=== PATIENT | female | born 1990 | race Caucasian/White ===

== ENCOUNTER 2019-03-14 20:23 | Inpatient (IN) ==
--- NOTE | 2019-03-14 20:40 | Emergency Department Note ---
Disposition Clinical Impression: Suicidal ideation Disposition: Admitted As Inpatient Psych HPI - General Stated Complaint: SI Time Seen by Provider: 03/14/19 20:29 Nursing Notes Reviewed: Yes Vital Signs Reviewed: Yes - History of Present Illness HPI Narrative: 28-year-old female who presents the emergency department with complaints of suicidal ideation. The patient states she has been going through talks with her of a possible divorce and since that time she has started to have thoughts of killing herself. She has no definitive plan this point has made no prior attempts. She denies any homicidal ideation. She states she has a headache but otherwise denies any somatic complaints at this time. - Related Data Home Medications Medication Instructions Recorded Confirmed Atorvastatin [Lipitor] 40 mg PO HS 10/29/16 03/14/19 SUMAtriptan succinate [Imitrex] 25 mg PO PRN PRN 11/17/17 03/14/19 Metoclopramide [Reglan] 10 mg PO QAM 09/04/18 03/14/19 Pantoprazole Sodium [Protonix] 40 mg PO QAM 09/04/18 03/14/19 Acetaminophen/Butalbital/Caffe 1 each PO PRN PRN 03/14/19 03/14/19 [Fioricet] Methocarbamol [Robaxin] 500 mg PO PRN PRN 03/14/19 03/14/19 Montelukast [Singulair] 10 mg PO PRN PRN 03/14/19 03/14/19 Allergies Allergy/AdvReac Type Severity Reaction Status Date / Time levofloxacin [From Levaquin] Allergy Rash Verified 02/16/19 17:38 sulfamethoxazole Allergy Rash Verified 02/16/19 17:38 [From Bactrim] trimethoprim [From Bactrim] Allergy Rash Verified 02/16/19 17:38 Review of Systems: ROS per history of present illness, all other systems reviewed and negative or normal. All systems ED: reviewed and negative except as stated. Review of Systems: As Per HPI Past Medical History - Past Medical History Medical history: Reports: no medical history, GERD Surgical history: Reports: other (Dental) Psychiatric history: Reports: anxiety SITE LEAD history: Reports: no SITE LEAD history - Social History Smoking Status: Never smoker Smokeless Tobacco Status: No Alcohol use: Reports: none Drug use: Reports: none Physical Exam - General Limitations: no limitations General appearance: alert, in no apparent distress - Head Head exam: atraumatic, normocephalic - Eye Eye exam: Present: normal appearance, EOMI - ENT ENT exam: normal exam, normal oropharynx, mucous membranes moist - Chest Chest inspection: Present: normal inspection, symmetric chest wall rise - Respiratory Respiratory exam: Present: normal lung sounds bilaterally. Absent: respiratory distress - Cardiovascular Cardiovascular exam: Present: regular rate, normal rhythm, normal heart sounds - Abdominal Exam Abdominal exam: Present: soft, Non-Tender. Absent: distention, guarding, rebound - Extremities Exam Extremities exam: Present: normal inspection. Absent: pedal edema - Neurological Exam Neurological exam: Present: alert, oriented X3 - Psychiatric Psychiatric exam: Present: depressed, flat affect, suicidal ideation, other. Absent: homicidal ideation - Skin Skin exam: Present: warm, dry, intact Course Vital Signs Temperature 98.6 F 03/14/19 21:04 Pulse Rate 78 03/14/19 21:04 Respiratory Rate 16 03/14/19 21:04 Blood Pressure 131/93 03/14/19 21:04 O2 Sat by Pulse Oximetry 99 03/14/19 21:04 Temperature 98.6 F 03/14/19 21:04 Pulse Rate 78 03/14/19 21:04 Respiratory Rate 16 03/14/19 21:04 Blood Pressure 131/93 03/14/19 21:04 O2 Sat by Pulse Oximetry 99 03/14/19 21:04 Oxygen Delivery Oxygen Delivery Room Air Psych - MDM Narrative Medical decision making narrative: 28-year-old female who presents from [place] for [facility] evaluation due to suicidal ideation. The patient is cooperative and in no acute distress at this time. She was placed with 1:1 sitter and her belongings were removed from the treatment area. Her his available at bedside. She was cleared medically prior to arrival with unremarkable laboratory evaluation and urine positive for barbiturates, likely chemical sales representative of her prescription for Fioricet for headaches. [facility] came to evaluate the patient and deemed her a candidate for inpatient psychiatry care. She will be admitted to their service. All questions answered. Psychiatric Medical Clearance - Medical Clearance Checklist Medical History: No Social History Section defined Current Vitals: Last Vital Signs Temp 98.6 F 03/14/19 21:04 Pulse 78 03/14/19 21:04 Resp 16 03/14/19 21:04 BP 131/93 03/14/19 21:04 Pulse Ox 99 03/14/19 21:04 Statement of Medical Clearance: I have evaluated the patient, reviewed diagnostic information, and certify that the patient's medical condition is sufficiently stable that transfer to the psychiatric unit does not pose a significant risk of deterioration.
--- NOTE | 2019-03-14 20:42 | Emergency Department Note ---
Disposition Clinical Impression: Suicidal ideation Disposition: Still a Patient General Adult HPI - General Stated complaint: SI Time Seen by Provider: 03/14/19 20:29 Source: patient, EMS Mode of arrival: EMS Limitations: no limitations Nursing Notes Reviewed: Yes Vital Signs Reviewed: Yes - History of Present Illness HPI Narrative: ED ATTESTATION NOTE: I examined this patient and my medical decision-making was reviewed with the Resident Physician/FISH CUTTING MACHINE OPERATOR/PA/Student. I have personally performed a face to face evaluation on this patient & I agree with the documented findings, disposition and treatment plan as described except to the extent set forth below. Patient was seen with emergency medicine resident Dr. La Lyle please see copy of her note for details of this encounter Briefly: 28-year-old female transferred from [facility] after me dically evaluated for suicidal ideations. The physical examination was benign her screening labs were within normal limits aside for urine tox screen. It positive for Fioricet which the patient is prescribed. Patient states she suicidal because her wants it worse or. History of depression but no prior mental health admissions. She has been placed in a room here at [facility] and we had a [id number] conversation with the screening mental health nurse who will see her when he finishes his current evaluation. Patient stable, disposition pending - Related Data Home Medications Medication Instructions Recorded Confirmed Atorvastatin [Lipitor] 40 mg PO HS 10/29/16 03/14/19 SUMAtriptan succinate [Imitrex] 25 mg PO PRN PRN 11/17/17 03/14/19 Metoclopramide [Reglan] 10 mg PO QAM 09/04/18 03/14/19 Pantoprazole Sodium [Protonix] 40 mg PO QAM 09/04/18 03/14/19 Acetaminophen/Butalbital/Caffe 1 each PO PRN PRN 03/14/19 03/14/19 [Fioricet] Methocarbamol [Robaxin] 500 mg PO PRN PRN 03/14/19 03/14/19 Montelukast [Singulair] 10 mg PO PRN PRN 03/14/19 03/14/19 Allergies Allergy/AdvReac Type Severity Reaction Status Date / Time levofloxacin [From Levaquin] Allergy Rash Verified 02/16/19 17:38 sulfamethoxazole Allergy Rash Verified 02/16/19 17:38 [From Bactrim] trimethoprim [From Bactrim] Allergy Rash Verified 02/16/19 17:38 Past Medical History - Past Medical History Medical history: Reports: no medical history, GERD Surgical history: Reports: other (Dental) Psychiatric history: Reports: anxiety ILLUMINATOR history: Reports: no ILLUMINATOR history - Social History Smoking Status: Never smoker Smokeless Tobacco Status: No Alcohol use: Reports: none Drug use: Reports: none Physical Exam - General Limitations: no limitations General appearance: alert, in no apparent distress
[2019-03-14] MEDS ORDERED: *HR* LORazepam 1 MG TABLET PO PRN (21:54)
[2019-03-14] MEDS ORDERED: MOM Conc 10 ML UD.LIQ PO PRN (21:54)
[2019-03-14] MEDS ORDERED: Mag Hydrox/Al Hydrox/Simeth 30 ML UDC PO PRN (21:54)
[2019-03-14] MEDS ORDERED: traZODone 50 MG TABLET PO PRN (21:54)
[2019-03-14] MEDS ORDERED: Haloperidol Lactate 5 MG/ML VIAL IM PRN (21:54)
[2019-03-14] MEDS ORDERED: *HR* LORazepam 2 MG/ML VIAL IM PRN (21:54)
[2019-03-14] MEDS ORDERED: hydrOXYzine pamoate 25 MG CAPSULE PO PRN (21:54)
[2019-03-14] MEDS ORDERED: Acetaminophen 325 MG TABLET PO PRN (21:54)
[2019-03-15] MEDS ORDERED: Methocarbamol 500 MG TABLET PO PRN (10:22)
[2019-03-15] MEDS ORDERED: SUMAtriptan succinate 25 MG TABLET PO PRN (10:24)
[2019-03-15] MEDS ORDERED: Acetaminophen/Butalbital/CaffeineTABLET PO PRN (10:26)
--- NOTE | 2019-03-15 10:45 | Psychiatry History & Physical ---
Date of Encounter: 03/15/19 Time of Encounter: 09:30 History of Present Illness Patient Stated Chief Complaint: "I was dealing with stress in my relationship" Medicare Admission Attestation: For traditional Medicare patients the provided hospital inpatient services are r easonable and necessary and in the case of services not specified as inpatient- only under 42 CFR 419.22 (n), that they are appropriately provided as inpatient services in accordance 42 CFR 412.3. For Critical Access Hospital the patient may reasonably be expected to be discharged or transferred to a hospital within 96 hours after admission to the Critical Access Hospital. Admitted From: Emergency Dept Plans for Post Hospital Care: Home History of Present Illness: Ms. Salas is a 28 year old female who was admitted from the emergency department for suicidal ideation without a plan. She states that she got very overwhelmed and threatened to kill herself, so her called the squad. Patient reports that she and her have been having marital problems for the past two months, along with the stress of her losing his job. She states that she wants to go to marital counseling, but he is not interested. She worries a lot about their marriage, her children, and where she will go if the marriage ends because the house is in her 's name. Patient has never attempted suicide in the past, but does tend to experience suicidal thoughts when she has depressive episodes. Patient admits to depressive symptoms including trouble concentration, poor sleep, poor appetite, low energy, and hopelessness. She rates her current depression level as 7/10 on a 0-10 scale with 0 being none and 10 being the worst of her life. She rates her anxiety as 7/10 on the same scale. Denies auditory and visual hallucinations. Her is planning on visiting the patient an[place] and she is looking forward to that. Patient has a history of GERD, migraine, seasonal allergies, and high cholesterol. Also appears to experiencing some IBS-diarrhea symptoms. States that her neurologist thinks that she may have fibromyalgia. Past Med Surg Social Fam HX - Past Medical History Medical history: fibromyalgia (neurologist is considering this diagnosis), GERD, hyperlipidemia, migraine - Past Psychiatric History Psychiatric history: Reports: depression Past psychiatric history details: Patient has never been evaluated by a psychiatrist or stayed in a psychiatric unit. She has never been to counseling. She does admit to an off-and-on history of depression. Four years ago, her PCP wanted to start her on Celexa, but she was afraid of the side effects and never took it. She does tend to experience suicidal thoughts when she has depressive episodes. Family psychiatric history: Yes Family Psychiatric History Details: Reports both parents and one sister with depression. Paternal aunt with schizophrenia. Mom has been on Celexa in the past. She does not know what her father or sister have been trialed on. Patient's mother is addicted to gambling and her father is addicted to drugs. Also has a brother with substance abuse. Family History of Suicide: None - Past Surgical History Surgical History: other - Social History Smoking Status: Never smoker Smokeless Tobacco Status: No Alcohol use: none Drug use: none Occupational status: employed Current living situation: Home Activity Level: Independent ambulation Additional social history: Patient was born and raised in [place] by both of her parents. Her parents were never and were off-and-on throughout her childhood. They are still together. As mentioned above, patient's father has "been on drugs ever since I remember" and her mother is addicted to gambling. Her parents fought a lot when patient was growing up. Patient has two sisters and one brother. She is close to her sisters, but does not speak to her brother. Her brother abuses drugs and has been to long term. Patient's highest level of education is high school, with MARKETING TRAINEE training. 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 Patient has to her for 3 years; this is her second marriage. She has two children (ages 8 and 10) of whom she has custody. She has been experiencing marital trouble for the past 2 months. She is very interested in marital [employer], but reports that her is not. Her lost his job 2 months ago, which has also been a stressor. Their home is in his name, so she is also stressed about finding housing if their marriage does not work out. Reports that he is a very good stepdad to her children. Medications & Allergies Atorvastatin [Lipitor] 40 mg PO HS 10/29/16 [History] SUMAtriptan succinate [Imitrex] 25 mg PO AD PRN 11/17/17 [History] Metoclopramide [Reglan] 10 mg PO HS 09/04/18 [History] Pantoprazole Sodium [Protonix] 40 mg PO QAM 09/04/18 [History] Acetaminophen/Butalbital/Caffe [Fioricet] 1 tab PO DAILY PRN 03/14/19 [History] Methocarbamol [Robaxin] 500 mg PO DAILY PRN 03/14/19 [History] Montelukast [Singulair] 10 mg PO DAILY PRN 03/14/19 [History] Allergy/AdvReac Type Severity Reaction Status Date / Time levofloxacin [From Levaquin] Allergy Rash Verified 02/16/19 17:38 sulfamethoxazole Allergy Rash Verified 02/16/19 17:38 [From Bactrim] trimethoprim [From Bactrim] Allergy Rash Verified 02/16/19 17:38 Review of Systems Musculoskeletal: Reports: myalgia (diffuse; from tensing up during stress) Psychiatric: Reports: depression, anxiety, abnormal sleep pattern, suicidal ideation, change in appetite (decreased), difficulty concentrating, h opelessness. Denies: auditory hallucinations, visual hallucinations, anhedonia Exam - HEENT Head exam IM: Present: atraumatic Eye exam IM: Present: EOMI - Neurological Neurological exam: Present: alert - Respiratory Respiratory exam IM: Absent: accessory muscle use, respiratory distress - GI/Abdominal GI/Abdominal exam IM: Present: no peritoneal signs - Extremities Extremities exam IM: Present: full ROM - Skin Skin exam IM: Present: dry - Constitutional Vitals: Temp Pulse Resp BP Pulse Ox 98.6 F 79 18 113/75 97 03/15/19 09:00 03/15/19 09:00 03/15/19 09:00 03/15/19 09:00 03/15/19 09:00 General appearance: age & developmentally appropriate, well-groomed, average Additional observations: Patient's hair is very well kept and in loose curls. Wearing hospital pajamas and covering up with a blanket, stating that she is waiting for her to bring her clothes. - Musculoskeletal Gait: normal Station: relaxed Strength & Tone: normal for patient - Psychiatric Patient Orientation: Yes Person, Yes Time, Yes Place, Yes Circumstance Level of alertness: Alert, Follows commands Behavior: cooperative, tearful Psychomotor activity: Normal Eye Contact: Maintains Eye Contact Mood Description: Depressed Patient description of mood: "emotional" Affect description: congruent with mood, tearful Speech Volume: Normal Speech pattern: normal rate, normal rhythm, normal tone, appropriate, clear, coherent Language & Vocabulary: consistent with education Thought Process: Intact, Logical, Linear, Goal Oriented (would like to attend counseling, both personal and marital) Thought Content: Yes Intact Perceptual Disturbances: No Reacting to internal stimuli Attention Span Ability: Capable of Focused Attention, Capable of Sustained Attention Memory Description: Grossly Intact Patient Reliability: Reliable Historian Fund of knowledge: Yes average Intelligence Estimate: Average Judgment: Fair Insight: Partial Assessment and Plan (1) Depression Current visit: No Status: Acute Plan: Admit inpatient for safety and stabilization, Close observation, Suicide Precautions per unit protocol, Encourage participation in unit milieu, Group Therapy, Monitor sleep, Monitor appetite Additional Plan: 1. Will start patient on Celexa 20mg for depressed mood. Reports that this medication worked in her mother, so there is a fairly good chance that the medication may work for the patient, as well. Will monitor for side effects. Patient in agreement with the treatment plan. 2. Will also start Seroquel 25mg at bedtime, as needed. Patient reports poor sleep; she got trazodone last night, which did not help. No abnormal movements at baseline. 2. Encourage group attendance. 3. Will work with social work to link patient with outpatient psychiatry and counseling at discharge. 4. Anticipate discharge more psychiatrically stable. Risks, benefits, side effects, alternatives discussed w/pt: Yes Patient agreeable to treatment: Yes Plans for Post Hospital Care: Home Estimated Length of Stay (Days): 2 Qualifiers: Depression Type: major depressive disorder Major depression recurrence: recurrent Active/Remission status: currently active Major depression episode severity: severe Psychotic features: without psychotic features Qualified Code(s): F33.2 - Major depressive disorder, recurrent severe without psychotic features - Attending Attestation I examined this patient and my medical decision-making was reviewed with the Resident Physician. I agree with the documented findings, disposition and treatment plan as described.
[2019-03-15] MEDS ORDERED: Metoclopramide 10 MG/10 ML UD.LIQ PO SCH (21:00)
[2019-03-16 09:22] VITALS: BP 117/77
--- NOTE | 2019-03-16 10:33 | Discharge Summary ---
Date of Encounter: 03/16/19 Time of Encounter: 09:00 Diagnosis - Discharge Diagnosis (1) Depression Status: Chronic Qualifiers: Depression Type: major depressive disorder Major depression recurrence: recurrent Active/Remission status: currently active Major depression episode severity: severe Psychotic features: without psychotic features Qualified Code(s): F33.2 - Major depressive disorder, recurrent severe without psychotic features Medications - Discharge Medications Prescriptions: Citalopram [CeleXA] 20 mg PO DAILY 30 Days #30 tablet Quetiapine Fumarate [Seroquel] 25 mg PO HS PRN 30 Days #30 tablet PRN Reason: Insomnia Atorvastatin [Lipitor] 40 mg PO HS 10/29/16 [History] SUMAtriptan succinate [Imitrex] 25 mg PO AD PRN 11/17/17 [History] Metoclopramide [Reglan] 10 mg PO HS 09/04/18 [History] Pantoprazole Sodium [Protonix] 40 mg PO QAM 09/04/18 [History] Acetaminophen/Butalbital/Caffe [Fioricet] 1 tab PO DAILY PRN 03/14/19 [History] Methocarbamol [Robaxin] 500 mg PO DAILY PRN 03/14/19 [History] Montelukast [Singulair] 10 mg PO DAILY PRN 03/14/19 [History] Citalopram [CeleXA] 20 mg PO DAILY 30 Days #30 tablet 03/16/19 [Rx] Quetiapine Fumarate [Seroquel] 25 mg PO HS PRN 30 Days #30 tablet 03/16/19 [Rx] Allergy/AdvReac Type Severity Reaction Status Date / Time levofloxacin [From Levaquin] Allergy Rash Verified 02/16/19 17:38 sulfamethoxazole Allergy Rash Verified 02/16/19 17:38 [From Bactrim] trimethoprim [From Bactrim] Allergy Rash Verified 02/16/19 17:38 Provider Date of admission: 03/14/19 21:12 Primary care physician: PCP NONE Discharging clinician: Rubia Murrell Psychiatry Exam - Constitutional Vitals: Temp Pulse Resp BP Pulse Ox 98.8 F 88 18 117/77 99 03/16/19 09:00 03/16/19 09:00 03/16/19 09:00 03/16/19 09:00 03/16/19 09:00 General appearance: age & developmentally appropriate, well-groomed Additional observations: Wearing street clothes. - Musculoskeletal Gait: normal Station: relaxed Strength & Tone: normal for patient - Psychiatric Patient Orientation: Yes Person, Yes Time, Yes Place, Yes Circumstance Level of alertness: Alert, Follows commands Behavior: calm, cooperative Psychomotor activity: Normal Eye Contact: Maintains Eye Contact Mood Description: Depressed (though improved from yesterday) Patient description of mood: "better" Affect description: congruent with mood Speech Volume: Normal Speech pattern: normal rate, normal rhythm, normal tone, clear, coherent Language & Vocabulary: consistent with education Thought Process: Intact, Logical, Linear, Goal Oriented Thought Content: Yes Intact, No Suicidal ideation, No Homicidal ideation, No Overt delusions Perceptual Disturbances: No Reacting to internal stimuli Attention Span Ability: Capable of Focused Attention, Capable of Sustained Attention Memory Description: Grossly Intact Patient Reliability: Reliable Historian Fund of knowledge: Yes average Intelligence Estimate: Average Judgment: Fair Insight: Partial Hospital Course Hospital course: Patient was admitted for suicidal ideation due to marital trouble and stress. She was educated of her diagnosis of depression and was started on Celexa. She was also started on Seroquel for sleep, as she found no benefit with trazadone. She was educated on the risks, benefits, and side effects of this treatment and alternative treatment options and was monitored for responsiveness and side effects. Mood, anxiety, sleep, appetite, and interest improved, as did future orientation. Self-harm thoughts subsided, thinking cleared, and mood stabilized. Patient was able to attend both individual and group therapy sessions as well as meeting with the psychiatrist daily and urged to discuss any medication or treatment issues or other concerns. The patient was educated primarily by verbal means about their diagnosis and manifestations in their life. The option for treatment including group and individual therapy programming was offered to the patient in the use of medications with all their potential risks, benefits, and side effects were discussed with the patient at length. The patient was given the opportunity to ask questions and was noted to participate in the treatment in the planning process. The patient felt ready and eager to be discharged from the inpatient psychiatric unit to continue on with treatment as an outpatient. The patient agreed that is they were safe for this disposition. The patient was considered to be able to participate in info rmed consent and decision making with respect to medical, legal, and financial issues of the time of discharge. At the time of discharge the patient adamantly denied any concerns for lethality including suicidal or homicidal thoughts, ideations, or plans and was future oriented toward ongoing mental health care and medical follow-up. Patient will be discharged home, with the possibility of staying at her sister's home (along with her children) if her no longer wants her to live at home. At discharge, patient reported her depression left was 4-5/10 on a 0-10 scale with 0 being none and 10 being the worst. She rated her anxiety as 5-6/10 on the same scale. These were both improvements from yesterday. As mentioned above, patient denied suicidal and homicidal ideation and felt ready and safe for discharge. - Time Spent with Patient Total time spent providing and/or coordinating discharge services: Greater than 30 minutes Specific discharge activities: Interval history reviewed. Available labs reviewed. Psychotherapy provided. Patient had an opportunity to ask questions and address concerns. Patient was in agreement with the treatment plan. The risks, benefits, and side effects of medications were discussed with the patient, including alternatives and treatment. The patient was educated on the abstaining from any alcohol or illicit substances, following up with all scheduled appointments, and taking all medications as prescribed. Assessment and Plan - Patient/Caregiver Discharge Instructions Activity: resume usual activities as tolerated (on 03/21/19), return to work Diet: low fat, low cholesterol Additional Instructions: Continue current medications. Follow up with outpatient mental health. Encourage continued therapy in a group or individual setting. The patient was discharged to home. - [facility] 3:30 pm (You have an appointment scheduled for Thursday, April 01, 2019 at 3:30 PM with Kamila Machado for an initial intake assessment. This appointment typically takes 1 1 hours and will cover your current symptoms and goals for treatment. Please complete the New Patient Intake Packet provided to you by staff and bring this with you to this appointment. Please also bring your insurance card, identification, proof of residence (utility bill or similar piece of mail), and proof of income (if applicable). If you are unable to keep this appointment, please call the office at the number above as soon as possible. ) Liza Martinez, SOCIAL PROBLEMS SPECIALIST [Advanced Practice Nurse] - (Please contact the office at the number above and follow up with your primary care provider as needed. Please keep your primary care provider informed of any changes in your medications or medical conditions. ) Functional capacity at discharge: independent ambulation Overall status at discharge: Stable Disposition: Home, Self-Care Quality - Multiple Antipsychotics Patient discharged on 2 or more antipsychotic medications: No - Attending Attestation I examined this patient and my medical decision-making was reviewed with the Resident Physician. I agree with the documented findings, disposition and treatment plan as described. Procedures - Procedures Procedures: Medication Management, Crisis Stabilization, Supportive Therapy, Group Therapy, Psychoeducational Therapy
== END 2019-03-16 10:50 | disposition home or self-care (01) | DRG 885 ==
LOC: EMEROOARM 20:23 → 1ANU 21:12
PROVIDERS: ADMIT Psychiatry & Neurology Psychiatry; ATTEND Psychiatry & Neurology Psychiatry

== ENCOUNTER → 2020-05-16 00:40 | Observation (INO) ==
[2020-05-15 23:07] LABS: Bacteria,Urine Few per hpf (None-Few); Bilirubin,Urine Negative (Negative); Blood,Urine Small (Negative); Clarity,Urine Clear (Clear); Color,Urine Light-Yellow (Yellow); Glucose,Urine (UA) Normal (Normal); Ketones,Urine 60 mg/dL (Negative); Leukocyte Esterase,Urine Negative (Negative); Mucus,Urine Few per lpf (None-Few); Nitrite,Urine Negative (Negative); Protein,Urine 30 mg/dL (Neg-Trace); Squamous Epithelial Cell,Urine Few per hpf (None-Few); Urobilinogen,Urine Normal (Normal); WBC,Urine 0-3 per hpf (0-3)
== END | disposition home or self-care (01) ==
LOC: 1NENULAB
PROVIDERS: ADMIT Obstetrics & Gynecology; ATTEND Obstetrics & Gynecology

== ENCOUNTER → 2020-07-05 23:40 | Observation (INO) ==
[2020-07-05 23:04] LABS: Basophils % 0.2 %; Eosinophils # 0.1 K/mcL (0.0-0.6); Eosinophils % 0.9 %; Hematocrit 33.6 % (35.3-44.9); Hemoglobin 11.1 g/dL (11.5-15.4); Immature Granulocytes % 0.5 % (0-4); Lymphocytes # 2.1 K/mcL (0.6-4.6); Lymphocytes % 22.5 %; Mean Corpuscular Hemoglobin 31.1 pg (28.0-33.3); Mean Corpuscular Volume 94.1 fL (83.0-100.0); Mean Platelet Volume 10.4 fL (9.4-12.4); Monocytes # 0.6 K/mcL (0.0-1.3); Monocytes % 5.9 %; Neutrophils # 6.5 K/mcL (1.6-8.9); Platelet Count 225 K/mcL (140-400); Red Blood Count 3.57 M/mcL (3.82-4.97); Red Cell Distribution Width 12.5 % (11.5-14.5); White Blood Count 9.3 K/mcL (4.3-11.1)
[2020-07-05 23:12] LABS: Bacteria,Urine Few per hpf (None-Few); Bilirubin,Urine Negative (Negative); Blood,Urine Negative (Negative); Budding Yeast,Urine Few per hpf (None Seen); Clarity,Urine Turbid (Clear); Color,Urine Light-Yellow (Yellow); Glucose,Urine (UA) Normal (Normal); Ketones,Urine Negative (Negative); Leukocyte Esterase,Urine Small (Negative); Mucus,Urine Few per lpf (None-Few); Nitrite,Urine Negative (Negative); PH,Urine 7.5 pH Units (5.0-8.0); Protein,Urine Negative (Neg-Trace); RBC,Urine 0-3 per hpf (0-3); Specific Gravity,Urine 1.012 (1.010-1.025); Squamous Epithelial Cell,Urine Moderate per hpf (None-Few); Urobilinogen,Urine Normal (Normal)
[2020-07-05 23:15] LABS: Protein/Creatinine Ratio,Urine 0.21 mg/mg (0.00-0.20)
[2020-07-05 23:26] LABS: Alanine Aminotransferase 9 Units/L (7-52); Aspartate Amino Transferase 12 Units/L (13-39); Blood Urea Nitrogen 5 mg/dL (6-20); Lactate Dehydrogenase 107 Units/L (140-271)
[2020-07-06 00:43] LABS: BUN/Creatinine Ratio 17 (6-26); eGFR For African Americans > 60 (> 60); eGFR For Non-African Americans > 60 (> 60)
== END | disposition home or self-care (01) ==
LOC: 1NENULAB
PROVIDERS: ADMIT Student in an Organized Health Care Education/Training Program; ATTEND Student in an Organized Health Care Education/Training Program

== ENCOUNTER → 2020-08-23 14:41 | Observation (INO) ==
[2020-08-23 13:48] LABS: Basophils % 0.1 %; Eosinophils # 0.1 K/mcL (0.0-0.6); Eosinophils % 0.6 %; Hematocrit 32.6 % (35.3-44.9); Hemoglobin 10.5 g/dL (11.5-15.4); Immature Granulocytes % 0.6 % (0-4); Lymphocytes # 1.5 K/mcL (0.6-4.6); Lymphocytes % 19.3 %; Mean Corpuscular HGB Conc 32.2 g/dL (31.6-35.5); Mean Corpuscular Hemoglobin 29.3 pg (28.0-33.3); Mean Corpuscular Volume 91.1 fL (83.0-100.0); Mean Platelet Volume 10.7 fL (9.4-12.4); Monocytes # 0.4 K/mcL (0.0-1.3); Monocytes % 5.3 %; Neutrophils # 5.9 K/mcL (1.6-8.9); Platelet Count 219 K/mcL (140-400); Red Blood Count 3.58 M/mcL (3.82-4.97); Red Cell Distribution Width 13.6 % (11.5-14.5); Segmented Neutrophils % 74.1 %
[2020-08-23 13:51] LABS: Bacteria,Urine Few per hpf (None-Few); Bilirubin,Urine Negative (Negative); Blood,Urine Negative (Negative); Clarity,Urine Turbid (Clear); Color,Urine Light-Yellow (Yellow); Glucose,Urine (UA) Normal (Normal); Ketones,Urine Negative (Negative); Leukocyte Esterase,Urine Large (Negative); Mucus,Urine Few per lpf (None-Few); Nitrite,Urine Negative (Negative); PH,Urine 6.5 pH Units (5.0-8.0); Protein,Urine Trace mg/dL (Neg-Trace); Specific Gravity,Urine 1.014 (1.010-1.025); Squamous Epithelial Cell,Urine Many per hpf (None-Few); Transitional Epi Cells,Urine Few per hpf (None-Few); Urobilinogen,Urine Normal (Normal)
[2020-08-23 13:56] LABS: Protein/Creatinine Ratio,Urine 0.29 mg/mg (0.00-0.20)
[2020-08-23 14:15] LABS: Alanine Aminotransferase 7 Units/L (7-52); Aspartate Amino Transferase 13 Units/L (13-39); BUN/Creatinine Ratio 11 (6-26); Blood Urea Nitrogen 4 mg/dL (6-20); Lactate Dehydrogenase 112 Units/L (140-271); Uric Acid 3.4 mg/dL (2.3-7.6); eGFR For African Americans > 60 (> 60); eGFR For Non-African Americans > 60 (> 60)
== END | disposition home or self-care (01) ==
LOC: 1NENULAB
PROVIDERS: ADMIT Obstetrics & Gynecology; ATTEND Obstetrics & Gynecology

== ENCOUNTER → 2020-09-01 22:15 | Observation (INO) ==
[2020-09-01 19:56] LABS: Protein/Creatinine Ratio,Urine 0.33 mg/mg (0.00-0.20)
[2020-09-01 20:27] LABS: Basophils % 0.1 %; Eosinophils # 0.1 K/mcL (0.0-0.6); Eosinophils % 0.6 %; Hematocrit 32.6 % (35.3-44.9); Hemoglobin 10.2 g/dL (11.5-15.4); Immature Granulocytes % 1.2 % (0-4); Lymphocytes # 1.8 K/mcL (0.6-4.6); Lymphocytes % 20.6 %; Mean Corpuscular HGB Conc 31.3 g/dL (31.6-35.5); Mean Corpuscular Hemoglobin 28.8 pg (28.0-33.3); Mean Corpuscular Volume 92.1 fL (83.0-100.0); Mean Platelet Volume 10.7 fL (9.4-12.4); Monocytes # 0.5 K/mcL (0.0-1.3); Monocytes % 5.3 %; Neutrophils # 6.2 K/mcL (1.6-8.9); Platelet Count 204 K/mcL (140-400); Red Blood Count 3.54 M/mcL (3.82-4.97); Red Cell Distribution Width 14.4 % (11.5-14.5); Segmented Neutrophils % 72.2 %; White Blood Count 8.5 K/mcL (4.3-11.1)
[2020-09-01 20:46] LABS: Alanine Aminotransferase 7 Units/L (7-52); Amylase 62 Units/L (29-103); Aspartate Amino Transferase 12 Units/L (13-39); BUN/Creatinine Ratio 8 (6-26); Blood Urea Nitrogen 3 mg/dL (6-20); Lactate Dehydrogenase 118 Units/L (140-271); Lipase 27 Units/L (11-82); Uric Acid 3.3 mg/dL (2.3-7.6); eGFR For African Americans > 60 (> 60); eGFR For Non-African Americans > 60 (> 60)
== END | disposition home or self-care (01) ==
LOC: 1NENULAB
PROVIDERS: ADMIT Obstetrics & Gynecology; ATTEND Obstetrics & Gynecology

== ENCOUNTER 2020-09-19 04:00 | Inpatient (IN) ==
[2020-09-19] MEDS ORDERED: Lidocaine 1% 20 ML MDV INFILT PRN (04:16)
[2020-09-19] MEDS ORDERED: Famotidine 20 MG/2 ML VIAL IVP PRN (04:16)
[2020-09-19] MEDS ORDERED: Naloxone 0.4 MG/ML INJ IVP PRN (04:16)
[2020-09-19] MEDS ORDERED: Metoclopramide 10 MG/2 ML VIAL IVP PRN (04:16)
[2020-09-19] MEDS ORDERED: Ondansetron 4 MG/2 ML VIAL IVP PRN (04:16)
[2020-09-19] MEDS ORDERED: *HR* FentaNYL (PF) 100 MCG/2 ML VIAL IVP PRN (04:16)
[2020-09-19] MEDS ORDERED: miSOPROStoL 25 MCG TABLET PO PRN (04:16)
[2020-09-19] MEDS ORDERED: Azithromycin 500 MG in 0.9 % Sodium Chloride 250 ML IVPB ONE (04:16)
[2020-09-19] MEDS ORDERED: Penicillin G Potassium 5,000,000 UNIT in 0.9 % Sodium Chloride Mini Bag 100 ML IVPB ONE (04:16)
[2020-09-19 04:43] LABS: Basophils % 0.3 %; Eosinophils # 0.1 K/mcL (0.0-0.6); Eosinophils % 0.8 %; Hematocrit 39.1 % (35.3-44.9); Hemoglobin 12.5 g/dL (11.5-15.4); Immature Granulocytes % 0.8 % (0-4); Lymphocytes # 1.8 K/mcL (0.6-4.6); Lymphocytes % 23.2 %; Mean Corpuscular Hemoglobin 29.3 pg (28.0-33.3); Mean Corpuscular Volume 91.6 fL (83.0-100.0); Mean Platelet Volume 10.7 fL (9.4-12.4); Monocytes # 0.5 K/mcL (0.0-1.3); Monocytes % 6.1 %; Neutrophils # 5.4 K/mcL (1.6-8.9); Platelet Count 192 K/mcL (140-400); Red Blood Count 4.27 M/mcL (3.82-4.97); Red Cell Distribution Width 17.8 % (11.5-14.5); Segmented Neutrophils % 68.8 %; White Blood Count 7.9 K/mcL (4.3-11.1)
[2020-09-19] MEDS: Ringers Solution, Lactated 1,000 ML IVC SCH ×2 (04:43→10:44)
[2020-09-19 04:52] LABS: Amphetamine Screen,Urine Negative ng/mL (Cutoff=1000); Barbiturate Screen,Urine Negative ng/mL (Cutoff=200); Benzodiazepines Screen,Urine Negative ng/mL (Cutoff=200); Cannabinoid Screen,Urine Negative ng/mL (Cutoff = 50); Cocaine Screen,Urine Negative ng/mL (Cutoff= 300); Opiate Screen,Urine Negative ng/mL (Cutoff=300); Phencyclidine Screen,Urine Negative ng/mL (Cutoff=25)
[2020-09-19] MEDS ORDERED: EPHEDrine 50 MG/ML VIAL IVP PRN (06:06)
[2020-09-19] MEDS ORDERED: Epidural Premix (fent/bupiv) 110 ML EP SCH (06:15)
[2020-09-19] MEDS: Penicillin G Potassium 2,500,000 UNIT/105 ML MLS IVPB SCH ×2 (08:57→12:59)
[2020-09-19] MEDS ORDERED: *HR* FentaNYL (PF) 100 MCG/2 ML VIAL ONE (10:43)
[2020-09-19] MEDS ORDERED: Ropivacaine/PF 0.2% 20 ML VIAL ONE (10:43)
[2020-09-19] MEDS: Oxytocin 20 units/ LR 1000 mL 20 UNIT/1,000 ML BAG IVC SCH ×2 (11:44→17:59)
[2020-09-19] MEDS ORDERED: *HR* FentaNYL (PF) 100 MCG/2 ML VIAL EP ONE (12:44)
[2020-09-19] MEDS ORDERED: Ropivacaine/PF 0.2% 20 ML VIAL EP ONE (12:44)
[2020-09-19] MEDS ORDERED: Lanolin 7 G OINT...G. TP PRN (18:41)
[2020-09-19] MEDS ORDERED: Oxytocin 20 units/ LR 1000 mL 20 UNIT/1,000 ML BAG IVC ONE (18:41)
[2020-09-19] MEDS ORDERED: Oxytocin 20 units/ LR 1000 mL 20 UNIT/1,000 ML BAG IVC SCH (18:41)
[2020-09-19] MEDS: Ibuprofen 600 MG TABLET PO PRN (19:27)
[2020-09-19] MEDS: Acetaminophen 325 MG TABLET PO PRN (22:53)
[2020-09-20] MEDS: Ibuprofen 600 MG TABLET PO PRN ×2 (04:10→13:37)
[2020-09-20] MEDS: Acetaminophen 325 MG TABLET PO PRN (08:22)
[2020-09-20] MEDS ORDERED: NON-FORMULARY MEDICATION 1 EACH EACH (Pnv No.95/Ferrous Fum/Folic Ac [Prenatal Caplet] 1 T PO SCH (09:00)
[2020-09-20] MEDS ORDERED: Prenatal Vit/FA 1 EACH TABLET PO SCH (09:00)
[2020-09-20 15:47] VITALS: BP 109/75
== END 2020-09-20 17:15 | disposition home or self-care (01) | DRG 806 ==
LOC: 1NENULAB 04:11 → 1NENUOBS 18:27
PROVIDERS: ADMIT Obstetrics & Gynecology; ATTEND Obstetrics & Gynecology